=== PATIENT | female | born 1970 | race Caucasian/White ===

== ENCOUNTER → 2020-04-06 | Outpatient (CLI) | payer BC, SELFPAY ==
[2014-01-05 08:32] VITALS: BMI 29.0
[2020-04-06 17:06] LABS: Absolute Lymphocyte Count 3.19 X10^3/uL (0.83-4.51); Absolute Neutrophil Count 5.3 X10^3/uL (2.0-7.7); Basophil# 0.04 X10^3/uL; Basophil% 0.4 % (0-1); Eosinophil# 0.02 X10^3/uL; Eosinophils% 0.2 % (0-5); Hemoglobin 15.5 g/dL (12.0-15.0); Lymphocyte # 3.19 X10^3/ul (4.0); Lymphocyte % 34.9 % (19-41); Mean Corp Hgb Conc 33.7 g/dL (32-36); Mean Corpuscular Hgb 29.6 pg (27.0-32.0); Mean Platelet Vol. 9.5 fl (6.2-12.0); Monocyte# 0.59 X10^3/uL; Monocyte% 6.5 % (0-10); NRBC Flagged by Analyzer 0 % (0-5); Neutrophil # 5.27 X10^3/uL (2.7-7.7); Neutrophil % 57.7 % (47-70); Platelet Count 339 K/mm3 (150-450); RBC Distribution Width CV 13.3 % (11.6-14.6); RBC Distribution Width SD 42.5 fl (35.1-43.9); Red Blood Count 5.23 M/mm3 (4.2-5.4); White Blood Count 9.1 K/mm3 (4.4-11.0)
[2020-04-06 17:11] LABS: Erythrocyte Sedimentation Rate 4 mm/hr (0-20)
[2020-04-06 17:22] LABS: CRP 6.71 mg/L (0.0-3.0)
== END | disposition home or self-care (01) ==
PROVIDERS: PCP Family Medicine; Referring Provider Physician Assistant; Visit Provider Physician Assistant
DX: Z09 Encounter for follow-up examination after completed treatment for conditions other than malignant neoplasm (principal)
CPT/HCPCS: 36415; 85025; 85652; 86140

== ENCOUNTER → 2021-05-20 15:48 | Outpatient (CLI) | payer BC, SELFPAY ==
--- NOTE | 2021-05-20 16:12 | CT_ITS ---
STUDY: CT RIGHTLOWER EXTREMITY WITHOUT CONTRAST REASON FOR EXAM: Female, 51 years old. RT KNEE OSTEOARTHRITIS [facility] protocol for knee replacement. RADIATION DOSAGE (If Supplied By Facility): CTDIvol = ( 18.81 ) mGy, DLP = ( 1191.36 ) mGycm TECHNIQUE: Thin section transaxial imaging of the ankle was obtained, with sagittal and coronal reconstructed images. Individualized dose optimization techniques were used for this CT. COMPARISON: None. Hip findings: Right hip prosthesis noted without demonstrated complications. Good bony contact and alignment of the prosthetic components visualized. No acute fractures or aggressive abnormality of the hip. Unremarkable soft tissues and visualized intrapelvic structures. Knee findings: 2 threaded screws are present across the anterior to posterior aspect of the tibial tuberosity and proximal one third tibial shaft without complications. No fractures are present. Mild to moderate narrowing is present at the periphery of the medial compartment. There is preservation of the articular joint space of the medial knee compartment. Normal lateral femoral condyle and lateral tibial plateau. There is preservation of the articular joint space of the lateral knee compartment. Normal proximal tibiofibular articulation. There is no joint effusion. The patellofemoral compartment is mildly narrowed in addition to cortical spurring seen at the periphery of the lateral patellar facet. The quadriceps tendon is grossly normal. The patellar tendon is grossly normal. Normal Hoffa''s fat pad. The soft tissues are unremarkable. Ankle findings: Normal visualized distal tibia and fibula. Normal tibiotalar articulation and talar dome. Normal talus, calcaneus, navicular and cuboid tarsal bones. Normal subtalar, talonavicular and calcaneocuboid articulations. The soft tissue structures are grossly normal. CT/Extremity Lower without Contra IMPRESSION: 1. Degenerative changes of the knee joint. 2. No fracture or suspicious bony abnormality is present. Electronically Signed: Sher Concepcion MD at 16:57 EDT , Service support ,
== END ==
PROVIDERS: PCP Family Medicine; Referring Provider Orthopaedic Surgery; Visit Provider Orthopaedic Surgery
DX: M17.31 Unilateral post-traumatic osteoarthritis, right knee (principal)
CPT/HCPCS: 73700

== ENCOUNTER 2021-06-20 05:56 | Day surgery (SDC) | payer BC, SELFPAY ==
[2021-05-20 17:21] LABS: Hematocrit 48.2 % (37-47); Hemoglobin 15.8 g/dL (12.0-15.0); Mean Corp Hgb Conc 32.8 g/dL (32-36); Mean Corpuscular Hgb 28.9 pg (27.0-32.0); Mean Corpuscular Volume 88.3 fL (81-99); Mean Platelet Vol. 9.3 fl (6.2-12.0); Platelet Count 354 K/mm3 (150-450); RBC Distribution Width CV 13.5 % (11.6-14.6); RBC Distribution Width SD 43.8 fl (35.1-43.9); Red Blood Count 5.46 M/mm3 (4.2-5.4); White Blood Count 11.8 K/mm3 (4.4-11.0)
[2021-05-20 17:40] LABS: Anion Gap 6 (5-15); BUN 13 mg/dL (7-18); BUN/Creat Ratio 16.8 RATIO (10-20); Calcium,Total 9.1 mg/dL (8.5-10.1); Chloride 103 mmol/L (98-107); Creatinine, Serum 0.77 mg/dL (0.55-1.02); EST Glomerular Filtration Rate 84 mL/min (>60); Est Glom Filt Rate - Afr Amer 102 mL/min (>60); Glucose 124 mg/dL (74-106); Potassium 3.5 mmol/L (3.5-5.1); Sodium Level 140 mmol/L (136-145)
[2021-05-20 18:03] LABS: Hemoglobin A1c 5.4 % (3.8-5.6)
[2021-05-23 08:54] LABS: Magnesium 2.3 mg/dL (1.6-2.6)
--- NOTE | 2021-05-27 10:11 | EKG12_ITS ---
Test Reason : PREOP Blood Pressure : / mmHG Vent. Rate : 073 BPM Atrial Rate : 073 BPM P-R Int : 158 ms QRS Dur : 082 ms QT Int : 368 ms P-R-T Axes : 054 037 054 degrees QTc Int : 405 ms Normal sinus rhythm Normal ECG Confirmed by NROMA TURPIN, KENNETH ([id number]), rewrite editor BETTY VOSS ([id number]) on 05/30/2021 1:13:52 PM Referred By: Mega Turner Confirmed By:KENNETH GREEN MD
[2021-06-20] VITALS (8 sets, daily range): BP systolic 100–119; BP diastolic 55–76; PULSE 67–76; RESP 16–18; TEMP 36.2–36.6; O2SAT 99–100; BMI 35.0
--- NOTE | 2021-06-20 | KNEE_PTH ---
PATIENT: BELINDA HORTA [place] [facility] [id number] AGE/SX: 51/F ROOM: RE06/20/[address]: Dr. Mega Turner DO : 1970 BED: DIS: 06/20/2021 SPEC #: [id number] RECD: 06/20/21 13:16 STATUS: IRLANDA REKaren #: [id number] RANJEET: 06/20/21 00:[address]: Mega Turner DEPT: SURGICAL PATHOLOGY RECD BY: Sage Abarca ENTERED: 06/20/21 13:17 SP TYPE: TOTAL KNEE OTHR DR: Dr. Lashell Patel MD Tissues: Knee, NOS Procedures: Decalcification bone/plaque Surgery Specimen Level IV HEADER OPERATION: ERAS, total knee replacement robotic arm assist PRE-OP DIAGNOSIS: Posttraumatic osteoarthritis right knee TISSUE SUBMITTED: Right knee bone MICROSCOPIC DIAGNOSIS Right knee bone, total knee replacement/resection: Pieces of bone with minimal degenerative osteoarthritic changes, clinically posttraumatic osteoarthritis. JENNY:ike 06/23/2021 MICROSCOPIC DESCRIPTION Slides are reviewed. GROSS DESCRIPTION Received is one container designated right knee bone. The specimen consists of multiple fragments of mirza-yellow bone measuring in aggregate 9 x 8.5 x 3 cm. No soft tissue is identified. A number of bony fragments contain articular surfaces consistent with tibial plateau and femoral condyle and displaying bone erosion. Floor Finisher sections are submitted in two cassettes after decalcification. / JENNY:ike 06/20/21 TC:5 CPT: 29771, 00002
[2021-06-20 06:31] LABS: Bedside Glucose 90 mg/dL (70-110)
[2021-06-20] MEDS: Acetaminophen 500 MG Tablet 1000 MG PO (06:54)
[2021-06-20] MEDS: Gabapentin 600 MG Tablet PO (06:54)
[2021-06-20] MEDS: Lactated Ringers 1,000 ML 100 ML IV (07:05)
[2021-06-20] MEDS: Cefazolin 2 GM in 0.9% Normal Saline 100 ML IV (08:11)
--- NOTE | 2021-06-20 10:00 | OP.PCM_ITS ---
Report of Operation Date of Procedure: 06/20/21 Pre-Operative Diagnosis: OA right knee and painful retained hardware right tibi al tubercle Post-Operative Diagnosis: same Surgery/Procedure Performed:: Removal of hardware and right TKR Description of Surgical Findings:: Report of Operation Date of Procedure: 06/20/21 Preoperative Diagnosis: [right ] knee primary osteoarthritis and painful retained hardware tibial tubercle Postoperative Diagnosis: [right ] knee primary osteoarthritis and painful retained hardware tibial tubercle Operation: Robotic Assisted Knee Total Arthroplasty, [right ] knee with removal of hardware Surgeon: Dr Mega Turner DO Bottle Caser: Al Rhoades PA-C Anesthesia: spinal Anesthesiologist: Willy Sheikh M.D. Findings: Stable knee with good patella tracking Specimen(s): Bony cuts Complications: No intraoperative complications Estimated Blood Loss: 20 cc IV Fluids: 1000 cc crystalloid Implants Used: 1. Christiano Triathlon size 3 press-fit CR femur 2. [place] Triathlon size 3 tibia 3. 32 mm patella 4. 9 mm CS polyethylene Brief History Operative Indications: [ (a51 y/o female) ] with history of [ right ] knee osteoarthrosis with radiographic findings with loss of joint space, osteophyte formation and subchondral sclerosis and painful retained screws from a previous tibial tubercle advancement.. Failed conservative measures as mentioned in the H&P. Discussion of total knee arthroplasty as well as risk and benefits were discussed with the patient including but not limited to blood loss, DVTs, PEs, neurovascular damage, general risk of anesthesia including loss of life, and stiffness or instability were also discussed with the patient. Patient demonstrated understanding and was able to sign informed consent. Procedure: On the date of procedure, patient's [ right ] lower extremity was marked in the preoperative area. The patient was then taken back to the operating room where that patient was placed on the table in the supine position. All bony prominences were identified and well-padded. Anesthesia assumed control of the C-spine and airway throughout the remainder of the procedure. A tourniquet was placed on the [right ] upper thigh and the leg was prepped in a sterile fashion. The surgeon then scrubbed at this time. Upon reentering the room, the [right ] lower extremity was draped in a standard orthopedic fashion. A timeout was then called and everyone agreed upon the side, the site, the procedure to be performed, patient's identity and antibiotics given. Esmarch bandage was used to exsanguinate the extremity and the tourniquet was placed up to 250 mmHg with the knee in flexion. A midline skin incision was made and a sharp dissection was taken down through skin, subcutaneous tissue and fat. The standard medial parapatellar incision was made and the patella was subluxed laterally. An appropriate deep MCL release was done and the fat pad was resected. The 2 tibial tubercle screw and their washers were exposed and removed with a 2.5 mm screw regional refrigerated cdl truck driver. Our attention was then directed to the patella. The patella was everted and a flat resection was made. The knee was then flexed up and 2 femoral pins were placed inside the incision and 2 tibial pins were placed outside the incision in the medial tibia bicortically. Once this was completed, the 2 checkpoints in the femur and tibia were placed. Knee was then flexed up and the bony landmarks were registered. Once the was completed, the knee taken through range of motion and manually stressed allowing us to plan for an appropriate tibial cut. The robotic arm was brought into the field sterilely and checkpoint and saw were registered. Based on the patient's deformity, the tibial cut was made in [ neutral ]. At this time, the tensioner was then placed in the joint and ligament tension was checked at 90 degrees and full extension. Based on the patient's ligamentous tension, appropriate adjustments were made to the operative plan and ligament releases were done. Once we were happy with our operative plan with balanced flexion and extension gaps, our attention was directed to the femur. The robot was brought into the field sterilely and registered. Posterior condylar cuts, anterior chamfer cuts and anterior cuts were appropriately made for a [ size 3 ] femur. When these were completed, the saws were switched out in the distal femoral and posterior chamfer cuts were made. Protecting the soft tissue throughout this time. A [size 3 ] base plate was selected. The knee was flexed to 90 degrees and soft tissues and posterior osteophytes were removed from the joint. 40 cc of the periarticular injection was injected into the posterior medial corner of the joint. The appropriate trials were then placed on the femur and tibia. A trial polyethylene was trialed to ensure proper balancing and stability of the knee. The appropriate tibial internal rotation was then marked with a bovie. Our attention was then directed to the patella. The lug holes were drilled and the patella trial was placed. Patellar tracking was checked and deemed appropriate. Once we were happy, lug holes were drilled for the femur and trial components were removed. The tibia was subluxed and pinned into place and the keel was punched and drilled appropriately. Final components were verified and opened. The wound was copiously irrigated with normal saline. The components were impacted into place with the tibia, femur and finally the patella. The trial poly component was placed and the knee was placed in full extension. The tracking, alignment and balance were verified and a [9 mm CS ] polyethylene component was placed. Once the final components were placed an Irrisept lavage was performed and the wound was copiously irrigated with normal saline solution and the periarticular injection was given. the wound was closed in a layer-vazquez fashion using #1 vicryl interrupted sutures for the arthrotomy, 2-0 interrupted vicryl suture for the subcuticular layer and tasha for final skin closure. A sterile compressive dressing was then placed. The patient was then awakened from anesthesia, trans ferred to the [facility] the [facility] and transferred to the PACU for recovery. My physician instructional support assistant was a vital part of this case. He was important in appropriate retraction during the case, and protection of soft tissues during bony cuts. His intimate knowledge of the case and my steps aided in safe and expedient completion of the procedure as well as appropriate position of the leg during the case. He was also vital in assisting with closure under my direct supervision. Due to the complexity of this case, robotic arm was used to assist in the surgery to improve accuracy and clinical outcomes. Post-op Plan: DVT ppx; ASA 81 mg BID, thigh high compression stockings Follow up: in office in 2 weeks for wound check PT: to start POD #0 at hospital, outpatient PT should be arranged. Preoperative antibiotic: Mega Turner DO Surgeon: Mega Turner instructional support technician: Al Rhoades Type of Anesthesia: Spinal Anesthesiologist: Willy Sheikh Estimated Blood Loss (mL): 20 cc Fluids Replaced: 1000 cc crystalloid Admit VTE Documentation VTE Present on Admission: No VTE Mechan Device Prophylaxis: SCD's and Thigh High SANCHO Hose VTE Pharm Prophylaxis ordered?: Yes
--- NOTE | 2021-06-20 10:30 | RAD_ITS ---
STUDY: X-RAY - RIGHT KNEE REASON FOR EXAM: Female, 51 years old. New total knee arthroplasty. TECHNIQUE: 2 view(s) of the knee. COMPARISON: None. FINDINGS: There is a 3 component total knee arthroplasty in anatomic position. There are expected post-operative findings. There are no complications. No other significant abnormality is identified. RAD/Knee 1 or 2 Views IMPRESSION: Total knee arthroplasty in anatomic alignment without complications. Electronically Signed: Al Holly MD at 10:54 EDT , Service support ,
[2021-06-20] MEDS: Clindamycin 900 MG/50 ML BAG 75 MG IV (12:33)
== END 2021-06-20 14:17 | disposition home or self-care (01) ==
LOC: SDC 05:56 → AC 05:57
PROVIDERS: Anesthesiology; PCP Family Medicine; Referring Provider Orthopaedic Surgery; Visit Provider Orthopaedic Surgery
PROC: 0SRC0JZ Replacement of Right Knee Joint with Synthetic Substitute, Open Approach (ICD-10-PCS; CPT 27447; principal; 2021-06-20 08:00)
DX: M17.11 Unilateral primary osteoarthritis, right knee (principal); T84.84XA Pain due to internal orthopedic prosthetic devices, implants and grafts, initial encounter; F17.200 Nicotine dependence, unspecified, uncomplicated; Z79.891 Long term (current) use of opiate analgesic
CPT/HCPCS: 01402; 20680; 27447; 64447; 76942; 36415; 73560; 80048; 82962; 83036; 83735; 85027; 87081; 88305; 88311; 93005; 97162; C1776; J7120

== ENCOUNTER 2021-06-27 16:59 | Emergency (ER) | payer BC, SELFPAY ==
[2021-06-27 17:00] VITALS: BP 140/91; PULSE 90; RESP 18; TEMP 36.6; O2SAT 95; BMI 35.0
--- NOTE | 2021-06-27 19:21 | US_ITS ---
STUDY: VENOUS DOPPLER ULTRASOUND - RIGHT LOWER EXTREMITY REASON FOR EXAM: Female, 51 years old. undefined -- RECENT RT KNEE REPLACEMENT PAIN AND SWELLING TO THE SITE TECHNIQUE: Ultrasound evaluation of the deep vein system to include draper-scale imaging and compression was performed. Draper-scale imaging and Doppler sonographic evaluation, including duplex spectral analysis and qualitative color flow sonography, was performed. COMPARISON: None. FINDINGS: Common Femoral Vein: Normal compression, spontaneity and augmentation. Normal color Doppler. Common Femoral Vein/Greater Saphenous Junction: Normal compression, spontaneity and augmentation. Normal color Doppler. Superficial Femoral Proximal: Normal compression, spontaneity and augmentation. Normal color Doppler. Superficial Femoral Middle: Normal compression, spontaneity and augmentation. Normal color Doppler. Superficial Femoral Distal: Normal compression, spontaneity and augmentation. Normal color Doppler. Popliteal Vein: Normal compression, spontaneity and augmentation. Normal color Doppler. Posterior Tibial Vein: Normal compression, spontaneity and augmentation. Normal color Doppler. Peroneal Vein: Normal compression, spontaneity and augmentation. Normal color Doppler. Right inguinal lymph nodes. There is no demonstrated deep venous thrombosis. US/Venous Duplex Imag/Limited/Uni IMPRESSION: There is no demonstrated deep venous thrombosis. Please see technologist report in PACS for further details for their impression/ worksheet/ details/ etc. Electronically Signed: Medhat Laws MD at 20:22 EST , Service support ,
--- NOTE | 2021-06-27 20:50 | ED.VIS.LOWEX ---
HPI History of Present Illness Chief Complaint: Lower Extremity Injury Informant: patient Onset/Context/Timing Onset: Today Context: Gradual Onset Timing: Continuous Quality of Pain: Aching Location: Right lower leg Worsened by: Ambulation Relieved by: Nothing Associated Symptoms Associated Symptoms: Negative for Parasthesia and Weakness Narrative Narrative: Patient presents with right lower extremity pain and swelling that became worse today. Patient states she had recent right total knee replacement. Patient states she was on her feet all day yesterday and was doing a lot of ambulating. Patient states that she noted some pain over the medial aspect of the right knee today. Patient noted some increased swelling today. Patient denies any fevers or chills. Patient denies any chest pain or shortness of breath. Patient denies any nausea or vomiting. Patient denies any trauma or injury. [facility] Medical History Arthritis Depression Smoker Wears contact lenses Home Medications Estradiol [Evamist] 2 spray TRANSDERMAL QHS 12/25/13 [History Last Taken Unknown] Imipramine Pamoate 100 mg PO QHS 12/25/13 [History Last Taken 06/19/21] aspirin 325 mg PO DAILY PRN PRN 05/23/21 [History Last Taken Unknown] tramadol 50 mg PO Q6H PRN 05/23/21 [History Last Taken Unknown] Allergy/AdvReac Type Severity Reaction Status Date / Time No Known Allergies Allergy Verified 06/27/21 17:02 Surgical History History of elbow surgery History of tonsillectomy and adenoidectomy History of total hysterectomy History of total right hip replacement Social History Smoking Status: Current some day smoker tobacco type: cigarettes ROS ROS ED Constitutional Constitutional ED: Denies chills or fever(s) Eyes Eyes: Denies blurry vision or change in vision ENT ENT ED: Denies rhinorrhea or sore throat Cardiovascular Cardiovascular: Denies chest pain or palpitations Respiratory/Chest Respiratory/Chest: Denies cough or dyspnea Gastrointestinal Gastrointestinal: Denies nausea or vomiting Genitourinary Genitourinary ED: Denies dysuria or hematuria Musculoskeletal Musculoskeletal: Denies back pain or neck pain Integumentary Denies abscess or rash Neurologic Neurologic: Denies headache(s) or weakness Allergic/Immunologic Allergic/Immunologic ED: Denies mouth swelling or urticaria EXAM Physical Exam Const Vital Signs: 06/27/21 17:00 Temperature 97.9 F Temperature Source Temporal Pulse Rate 90 Respiratory Rate 18 Blood Pressure 140/91 H Blood Pressure Mean 107 Pulse Ox 95 Oxygen Delivery Method Room Air Positive well nourished and well developed General Appearance ED: well developed Neck full ROM and supple Extremity Extremity Narrative: There is some mild tenderness over the medial aspect of the right knee. There is no bony crepitance or step-off. There is good range of motion. Sutures and surgical tasha are still in place. There is no sign of any infection of the wound. There is no discharge or drainage. There is no erythema or warmth. There is some ecchymosis in the right calf and right ankle. There is no tenderness. Pedal pulses are equal bilaterally. Sensation was intact to light touch in all digits. Neuro oriented x3, CN's II-XII intact bilaterally, moves all extremities and no sensory deficits noted Sensorium / Orientation: alert Motor Exam: strength 5/5 throughout Psych mental status grossly normal MDM MDM MDM Narrative Medical decision making narrative: Venous duplex of the right lower extremity was obtained. There is no DVT noted. Patient was instructed to keep the right leg elevated. Patient was instructed to follow-up with her primary care physician and orthopedic surgeon as scheduled. Patient understood and was agreeable with the plan. All questions were answered. Radiography Diagnostic Testing: Clinical Impression(s) from Imaging Studies Venous Duplex 06/27/21 19:21 IMPRESSION: There is no demonstrated deep venous thrombosis. Please see technologist report in PACS for further details for their impression/ worksheet/ details/ etc. Electronically Signed: Medhat Laws MD at 20:22 EST , Service support , Discharge Plan Triage Chief Complaint: Lower Extremity Injury ED Provider: Tom Wilkerson Dx/Rx/DC Orders Clinical Impression: Edema of right lower leg Instructions: ED Peripheral Edema, Unilateral Prescriptions: No Action Estradiol [Evamist] 8.1 ML [place] 2 spray transdermal QHS RF: 0 Imipramine Pamoate 100 mg PO QHS RF: 0 tramadol 50 mg Tablet 50 mg PO Q6H PRN (Reason: Pain) RF: 0 aspirin 325 MG tablet,delayed release (DR/EC) 325 mg PO DAILY PRN PRN (Reason: Pain) RF: 0 Primary Care Provider: Lashell Patel Referrals: Lashell Patel MD [Primary Care Provider] - 3-5 Days Mega Turner DO [STAFF PHYSICIAN] - 3-5 Days Disposition Disposition: Home, Self Care
[2021-06-27 21:08] VITALS: PULSE 91; RESP 16; O2SAT 96
== END 2021-06-27 21:09 | disposition home or self-care (01) ==
LOC: ED 21:00
PROVIDERS: Emergency Provider Emergency Medicine; PCP Family Medicine
DX: R60.0 Localized edema (principal); F17.210 Nicotine dependence, cigarettes, uncomplicated; Z96.651 Presence of right artificial knee joint
CPT/HCPCS: 93971; 99282

== ENCOUNTER 2024-10-20 13:56 | Inpatient (IN) | payer BC, SELFPAY ==
[2024-10-08 12:40] LABS: Absolute Lymphocyte Count 2.19 X10^3/uL (0.83-4.51); Absolute Neutrophil Count 4.1 X10^3/uL (2.0-7.7); Basophil# 0.04 X10^3/uL; Basophil% 0.6 % (0-1); Eosinophil# 0.13 X10^3/uL; Eosinophils% 1.9 % (0-5); Hematocrit 42.7 % (37-47); Hemoglobin 14.2 g/dL (12.0-15.0); Lymphocyte # 2.19 X10^3/ul (0.83-4.51); Mean Corp Hgb Conc 33.3 g/dL (32-36); Mean Corpuscular Hgb 29.1 pg (27.0-32.0); Mean Corpuscular Volume 87.5 fL (81-99); Monocyte# 0.37 X10^3/uL; Monocyte% 5.4 % (0-10); NRBC Flagged by Analyzer 0 % (0-5); Neutrophil # 4.09 X10^3/uL (2.7-7.7); Neutrophil % 59.8 % (47-70); Platelet Count 271 K/mm3 (150-450); RBC Distribution Width CV 11.8 % (11.6-14.6); Red Blood Count 4.88 M/mm3 (4.2-5.4); White Blood Count 6.8 K/mm3 (4.4-11.0)
[2024-10-08 13:10] LABS: Albumin, Serum 3.9 g/dL (3.2-5.0); Anion Gap 5 (5-15); BUN 14 mg/dL (7-18); BUN/Creat Ratio 25.6 RATIO (10-20); Calcium,Total 9.5 mg/dL (8.5-10.1); Chloride 108 mmol/L (98-107); Creatinine, Serum 0.55 mg/dL (0.55-1.02); EST Glomerular Filtration Rate 124 mL/min (>60); Est Glom Filt Rate - Afr Amer 150 mL/min (>60); Glucose 96 mg/dL (74-106); Potassium 4.1 mmol/L (3.5-5.1); Sodium Level 140 mmol/L (136-145)
[2024-10-08 13:15] LABS: Magnesium 2.1 mg/dL (1.6-2.6)
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
[2024-10-20] VITALS (10 sets, daily range): BP systolic 91–110; BP diastolic 51–75; PULSE 70–89; RESP 16–100; TEMP 36.2–37.4; O2SAT 98–100; BMI 30.5; BMI 30.6
--- NOTE | 2024-10-20 09:21 | PCM.PRE.AN2 ---
ASA Classification* ASA Classification ASA Classification: 2 Assessment & Plan Anesthesia* Anesthesia Assessment Anesthesia Assessment: Discussed sedation and/or anesthesia options, risks, benefits, and alternatives with patient/parents/legal guardian/POA. Questions invited. The patient/parents/legal guardian/POA seems to understand and agrees to proceed with anesthesia plan. Reviewed the physical assessment, medical history, allergy history and patient home medications list prior to surgery/procedure/anesthetic and documented any changes. Performed airway and anesthesia risk assessments. Anesthesia Type Anesthesia Type: Spinal and Block Anesthesia Focused Assessment* Airway Assessment Mouth opens: >3 cm Mallampati Score: II Focused Labs Anesthesia Preop lab: CBC WBC 6.8 K/mm3 (4.4-11.0) 10/08/24 12:10/08/24 RBC 4.88 M/mm3 (4.2-5.4) 10/08/24 12:10/08/24 Hgb 14.2 g/dL (12.0-15.0) 10/08/24 12:10/08/24 Hct 42.7 % (37-47) 10/08/24 12:10/08/24 Plt Count 271 K/mm3 (150-450) 10/08/24 12:10/08/24 CHEMISTRY Potassium 4.1 mmol/L (3.5-5.1) 10/08/24 12:10/08/24 Sodium 140 mmol/L (136-145) 10/08/24 12:10/08/24 Magnesium 2.1 mg/dL (1.6-2.6) 10/08/24 12:10/08/24 BUN 14 mg/dL (7-18) 10/08/24 12:10/08/24 Creatinine 0.55 mg/dL (0.55-1.02) 10/08/24 12:10/08/24 Glucose 96 mg/dL (74-106) 10/08/24 12:10/08/24 POC Glucose 90 mg/dL (70-110) 06/20/21 06:28 06/20/21 COAG Pre-Assessment Diagnosis/Proposed Procedure Planned Operative Procedure(s): TOTAL KNEE POLY EXCHANGE RIGHT Anesthesia History Anesthesia History - tent assembler: Anesthesia History - tent assembler Hx Hospitalization No 09/25/24 13:26 Any Problems With Anesthesia No 09/25/24 13:26 Cholinesterase deficiency No 09/25/24 13:26 You/Your Family Experience No 09/25/24 13:26 fever (hyperthermia) with Relationship Recent Exposure to Contagious No 06/20/21 06:47 Disease Does patient have nerve No 09/25/24 13:26 stimulator Patient instructed to have device shut off --Does patient have Pacemaker or ICD? When Was Last Pacemaker Check QUESTION #4 FULL TEXT: You/Your Family Experience fever (hyperthermia) with Anesthesia Last Oral Intake Last Oral intake: Last Oral Intake NPO since Meds taken in AM with sips of water? Meds patient instructed to take am of surgery PONV PONV - tent assembler: PONV - tent assembler Female Yes 09/25/24 13:26 HX of Motion Sickness No 09/25/24 13:26 HX of N/V After Surgery No 09/25/24 13:26 Non-Smoker Yes 09/25/24 13:26 Duration of Surgery greater Yes 09/25/24 13:26 than 60 minutes Number of Risk Factors 3 09/25/24 13:26 PONV Score Moderate Risk 09/25/24 13:26 Height & Weight Height & Weight: Anesthesia: Height & Weight Height 5 ft 6 in 06/27/21 17:00 Respiratory Assessment Respiratory Assessment - tent assembler: Respiratory Tract Infection Hx - tent assembler Hx Respiratory Tract Infection No 09/25/24 13:26 STOP Sleep Apnea STOP Sleep Apnea - tent assembler: STOP Sleep Apnea - tent assembler Hx Hypertension No 09/25/24 13:26 Hx Sleep Apnea No 09/25/24 13:26 CPAP No 01/05/14 12:42 BIPAP Do you snore loudly (louder No 09/25/24 13:26 than talking or can be heard Do you often feel tired/ No 09/25/24 13:26 fatigued/ sleepy during daytime? Has anyone observed you stop No 09/25/24 13:26 breathing during sleep? STOP Results Negative 09/25/24 13:26 QUESTION #5 FULL TEXT : Do you snore loudly (louder than talking or can be heard through closed doors)? Tobacco Use History Tobacco Use History - tent assembler: Tobacco Use History - tent assembler Tobacco Use Smoking Status Former smoker 09/25/24 13:26 Hx Tobacco Use No 09/25/24 13:26 Years Smoking Packs Smoked per Day Smoking Cessation Date was Yes - quit smoking within 15 09/25/24 13:26 within the last 15 years years Hx Smoking Cessation Date 08/20/22 09/25/24 13:26 Hx Smoking Cessation No 09/25/24 13:26 Counseling Hematologic Medial History Hematologic Hx - tent assembler: Hematologic Medical Hx - camera repairman Hx of Blood Transfusion No 09/25/24 13:26 Hx of Transfusion in last 3 No 09/25/24 13:26 Months Date of Last Transfusion (if within last 3 months) Ever experience any problems No 09/25/24 13:26 with transfusion(s)? Specify any problems Hx of Preganancy in last 3 No 09/25/24 13:26 Months Nurse Filling Out Transfusion DSCHRIBER 09/25/24 13:26 & Questions: Date: 09/25/24 09/25/24 13:26 Time: 13:28 09/25/24 13:26 Patient unable to answer at this time (ie. confused, unrespo /Reproduction History /Reproductive History - tent assembler: /Reproductive Hx- tent assembler Hx Now No 09/25/24 13:26 Gestational Age (in weeks): EDC: Hx Hx Para Hx Section SAB No 09/25/24 13:26 Active Medications Active Medications: Current Medications Generic Name Dose Route Start Last Admin Trade Name Freq PRN Reason Stop Dose Admin Acetaminophen 1,000 mg 10/20/24 11:15 Acetaminophen 500 Mg Tablet PO 10/20/24 11:16 X1 ONE Sodium Chloride 77.4 ml/ 0 ml 10/20/24 11:15 Ropivacaine 200 mg/ OPERA.SITE 10/20/24 11:16 Epinephrine HCl 0.6 mg/ X1 ONE Ketorolac Tromethamine 30 mg/ Morphine Sulfate 5 mg Dexamethasone Sodium Phosphate 10 mg 10/20/24 11:15 Dexamethasone 10 Mg/Ml Vial IV 10/20/24 11:16 X1 ONE Gabapentin 600 mg 10/20/24 11:15 Gabapentin 600 Mg Tablet PO 10/20/24 11:16 X1 ONE Lactated Ringer's 1,000 mls @ 999 mls/hr 10/20/24 11:15 IV 10/20/24 12:15 .Q1H1M FRANCIE Cefazolin Sodium 2 gm/ N/A 20 mls @ 400 mls/hr 10/20/24 11:15 IV 10/20/24 11:17 PREOP ONE Tranexamic Acid 1,000 mg/ 110 mls @ 660 mls/hr 10/20/24 11:15 Sodium Chloride IV 10/20/24 11:24 X1 ONE Tranexamic Acid 1,000 mg/ 110 mls @ 660 mls/hr 10/20/24 11:15 Sodium Chloride IV 10/20/24 11:24 X1 ONE Magnesium Sulfate 1 gm/ 102 mls @ 408 mls/hr 10/20/24 11:15 Dextrose IV 10/20/24 11:29 X1 ONE Insulin Human Lispro 1 - 6 unit 10/20/24 11:15 Insulin Lispro 100 Unit/Ml Insuln.Pen SC 10/20/24 23:59 Q4H PRN PRN BG>/= 180, SEE PROTOCOL Protocol PFSH Medical History Bladder disease Wears glasses Former smoker History of pain when walking Cardiology follow-up encounter Wears contact lenses Arthritis Home Medications ?Medication ?Instructions ?Recorded ?Last Taken ?Type Imipramine Pamoate 100 mg PO QHS OAB 12/25/13 06/19/21 History calcium 500 mg (as 2 tab PO DAILY SUPPLEMENT 09/25/24 Unknown History carbonate)-vitamin D3 3.125 mcg (125 unit) tablet cholecalciferol (vitamin D3) 50 100 mcg PO DAILY SUPPLEMENT 09/25/24 Unknown History mcg (2,000 unit) tablet (Vitamin D3) hydrocodone-acetaminophen 5-325mg 1 tab PO TID PAIN 09/25/24 Unknown History 5mg-325mg methocarbamol 500 mg tablet 250 mg PO TID PAIN 09/25/24 Unknown History multivitamin with minerals-folic 1 tab PO DAILY SUPPLEMENT 09/25/24 Unknown History acid 200 mcg chewable tablet (Adult Multivitamin Gummies) Allergy/AdvReac Type Severity Reaction Status Date / Time No Known Allergies Allergy Verified 09/25/24 13:20 Surgical History History of surgery History of gastric bypass Hx of total knee replacement History of tonsillectomy and adenoidectomy History of total hysterectomy History of elbow surgery History of total right hip replacement Social History Smoking Status: Former smoker Review of Systems (Anesthesia) ROS Narrative System reviewed and no additional complaints, except as documented.
[2024-10-20] MEDS: Magnesium 1 GM over 15 mins IV (10:09)
[2024-10-20] MEDS: Lactated Ringers 1,000 ML 999 ML IV (10:09)
[2024-10-20] MEDS: Acetaminophen 500 MG Tablet 1000 MG PO ×3 (10:10→20:35)
[2024-10-20] MEDS: Gabapentin 600 MG Tablet PO (10:10)
[2024-10-20 10:50] LABS: Bedside Glucose 63 mg/dL (74-106)
[2024-10-20] MEDS: Cefazolin 2 GM in Syringe 10 ML IV (12:38)
[2024-10-20] MEDS: TXA 1000mg in NS100 100ml (IVPB at Incision) 660 MG IV (12:46)
[2024-10-20] MEDS: dexAMETHasone 10 MG/ML Vial IV (12:47)
[2024-10-20] MEDS: JPS (Morphine 10mg/ml) OPERA.SITE (13:40)
[2024-10-20] MEDS: TXA 1000mg in NS100 100ml (IVPB at Closure) 660 MG IV (13:41)
--- NOTE | 2024-10-20 13:51 | OP.PCM_ITS ---
Operative Report (Standard) Operative Information Date of Procedure: 10/20/24 Pre-Operative Diagnosis: Pain and instability status post right total knee replacement with lateral facet pain Post-Operative Diagnosis: Pain and instability status post right total knee replacement with lateral facet pain Surgery/Procedure Performed: Right total knee knee 1 component revision, complete synovectomy and lateral patellar facetectomy radiologist chief of breast imaging: Yes Telegraph Office Manager: Valentina Morales Tasks completed by topographical field assistant: Other (See operative report body) Additional assistant press operator offset?: No Type of Anesthesia: Spinal RN Documented Start/Stop Times: Operation Date: 10/20/24 11:15 Case Time Into Pre-Op 10/20/24 09:10 Out of Pre-Op 10/20/24 12:30 Anesthesia Start 10/20/24 12:38 Into Room 10/20/24 12:38
--- NOTE | 2024-10-20 13:51 | PCM.OPRPT ---
Operative Report (Standard) Operative Information Date of Procedure: 10/20/24 Pre-Operative Diagnosis: Pain and instability status post right total knee replacement with lateral facet pain Post-Operative Diagnosis: Pain and instability status post right total knee replacement with lateral facet pain Surgery/Procedure Performed: Right total knee knee 1 component revision, complete synovectomy and lateral patellar facetectomy community health nurse supervisor: Yes Truck Loader Overhead Crane: Valentina Morales Tasks completed by roofer assistant: Other (See operative report body) Additional patient observation assistant?: No Type of Anesthesia: Spinal RN Documented Start/Stop Times: Operation Date: 10/20/24 11:15 Case Time Into Pre-Op 10/20/24 09:10 Out of Pre-Op 10/20/24 12:30 Anesthesia Start 10/20/24 12:38 Into Room 10/20/24 12:38 Procedure Start 10/20/24 13:08 Procedure End 10/20/24 14:47 Anesthesia End 10/20/24 14:51 Out of Room 10/20/24 14:51 Procedure Start Time: 13:08 Procedure Stop Time: 14:47 Select all DRAINS/GRAFTS/IMPLANTS that apply: Prosthetic device Prosthetic device details: Christiano X3 triathlon polyethylene size 3/11 mm CS Special Medications: Ancef Estimated Blood Loss: 25 mL Fluids Replaced: 1500 mm crystalloid Specimen collected: No Description of surgery: On the date of procedure patient's R lower extremity was marked in the preoperative area. The patient was then taken back to the operating room where the patient was placed on the table in the supine position. All bony prominences were identified a well-padded. Anesthesia assumed control of the C-spine and airway and remained controlled throughout the remainder of the procedure. A tourniquet was placed on the operative thigh and the leg was prepped in a sterile fashion. The surgeon then scrubbed at this time .Upon reentering the room left lower extremity was draped in a standard orthopedic fashion. A timeout was then called and everyone agreed upon the side, the site, the procedure to be performed, patient's identity and antibiotics given. A midline skin incision was made and sharp dissection was taken down through skin subcutaneous tissue and fat. Appropriate flaps were elevated medially and laterally. His arthrotomy was identified and the standard medial parapatellar incision was made and the patella was subluxed laterally. The standard deep MCL release was done. At this point a complete synovectomy commenced. Our attention was first turned towards the subpatellar pouch and all synovium was debrided. We then directed our attention towards medial lateral gutters were these tissues were completely debrided. Knee was then flexed up the polyethylene was removed. Once polyethylene was removed we did the remainder of the synovium in the medial and lateral gutters and along the lateral structures and MCL. We then debrided the posterior knee. Knee was flexed up and synovium was removed and the PCL. And also there was a membrane beneath the tibial baseplate that was removed. He had completed our synovectomy and were happy with the joint. The wound was irrigated out with 6 L of normal saline under low-pressure lavage. We then trialed and settled upon a 11 mm polyethylene. Triathlon size 3X3 11 mm polyethylene was then opened and put back into place after appropriate trialing. Tourniquet was let down and hemostasis was obtained as well as possible. Once the final components were placed the wound was copiously irrigated with normal saline solution. The wound was closed in a layer vazquez fashion using #1 vicryl interrupted sutures for the arthrotomy, 2-0 interrupted Vicryl for the subcuticular layer and tasha for final skin closure. A sterile compressive dressing was then placed. The patient was then awakened from anesthesia, transferred to the [place] and transferred to the PACU for recovery. Post op plan DVT prophylaxis: Aspirin 81 mg p.o. twice daily PT normal total knee postop protocol Antibiotics: Doxycycline 100 mg p.o. twice daily for 2 weeks due to revision nature of surgery My physician patient observation assistant was a vital part of this case, they was important because there was not another skilled set of hands available to their training and aptitude needed for safe and appropriate completion of this case. They were important in appropriate retraction during the case, and protection of soft tissues during bony cuts. In particular the experience and skill of this patient observation assistant made for safe retraction and exposure during implantation of medical implants without damage or fracture to vital soft tissues or structures. His intimate knowledge of the case and my steps aided in safe and expedient completion of the procedure as well as appropriate position of the leg during the case. He was also vital in assisting with closure and placement of the dressing under my direct supervision. Surgical Findings: Patient inferior stability when upsizing from 9 mm to 11 mm polyethylene. Implants were stably fixed Complications Complications: No Admit VTE Documentation VTE Present on Admission: No VTE Mechan Device Prophylaxis: SCD's and Thigh High SANCHO Hose VTE Pharm Prophylaxis ordered?: Yes
--- NOTE | 2024-10-20 15:05 | PCM.POST.ANE ---
Anesthesia: Postop Eval I Current Vital Signs Temperature: 97.1 F Pulse Rate: 83 Blood Pressure: 100/62 Respiratory Rate: 16 Pulse Ox: 100 Oxygen Delivery Method: Nasal Cannula Oxygen Flow Rate (L/min): 4 Assessment Airway patent: Yes Spontaneous unlabored respirations: Yes Mental status: Awake nausea: No Vomiting: No Anesthesia Complication: No Fluid Hydration Crystalloid volume administer (ml): 1,900 Total IV fluid infused: 1,900 Progress Note Anesthesia document: Postop Eval 1 completed: Yes
--- NOTE | 2024-10-20 15:15 | RAD_ITS ---
PROCEDURE: Right KNEE 1 OR 2 VIEWS REASON FOR EXAM: Postop right total knee arthroplasty. TECHNIQUE: AP and crosstable lateral view(s) of the right knee COMPARISON: Right knee radiograph from 06/20/2021. FINDINGS: There are postsurgical changes from knee arthroplasty with no acute fracture, dislocation, or loosening. Soft tissue air is present on a postsurgical basis. Skin tasha are identified anteriorly. RAD/Knee 1 or 2 Views IMPRESSION: Postsurgical changes from right knee arthroplasty. Reading Location: [facility]
--- NOTE | 2024-10-20 15:23 | POSTOPAN2_ITS ---
Anesthesia Postop Eval I Sum Postop Eval Completion status Anesthesia document: Postop Eval 1 completed: Yes Anesthesia Postop Eval I Summary Anesthesia Postop Eval I Summary: Anesthesia Postop Eval I: Assessment Summary Airway patent Yes 10/20/24 15:07 [email or web address] Spontaneous unlabored Yes 10/20/24 15:07 [email or web address] [email or web address] respirations Mental status Awake 10/20/24 15:07 [email or web address] [email or web address] nausea No 10/20/24 15:07 [email or web address] [email or web address] Vomiting No 10/20/24 15:07 [email or web address] [email or web address] Anesthesia Postop Eval I: Fluid Summary Crystalloid volume administer 1,900 10/20/24 15:07 [email or web address] [email or web address] (ml) Colloids volume administered ( ml) Blood Product volume administered (ml) Total IV fluid infused 1,900 10/20/24 15:07 [email or web address] [email or web address] Anesthesia Postop Eval I: Summary Notes Anesthesia Complication No 10/20/24 15:07 [email or web address] Anesthesia Complication Comment: Post-operative progress note Anesthesia: Postop Eval II Evaluation Mental status: Awake Pain Level: 0 nausea: No Vomiting: No
--- NOTE | 2024-10-20 15:23 | PCM.POSTANE2 ---
Anesthesia Postop Eval I Sum Postop Eval Completion status Anesthesia document: Postop Eval 1 completed: Yes Anesthesia Postop Eval I Summary Anesthesia Postop Eval I Summary: Anesthesia Postop Eval I: Assessment Summary Airway patent Yes 10/20/24 15:07 INDUSTRIAL [email or web address] [email or web address] Spontaneous unlabored Yes 10/20/24 15:07 INDUSTRIAL HYGIENE [email or web address] respirations Mental status Awake 10/20/24 15:07 INDUSTRIAL HYGIENE [email or web address] nausea No 10/20/24 15:07 INDUSTRIAL HYGIENE [email or web address] Vomiting No 10/20/24 15:07 INDUSTRIAL HYGIENE [email or web address] Anesthesia Postop Eval I: Fluid Summary Crystalloid volume administer 1,900 10/20/24 15:07 INDUSTRIAL HYGIENE [email or web address] (ml) Colloids volume administered ( ml) Blood Product volume administered (ml) Total IV fluid infused 1,900 10/20/24 15:07 INDUSTRIAL HYGIENE [email or web address] Anesthesia Postop Eval I: Summary Notes Anesthesia Complication No 10/20/24 15:07 INDUSTRIAL HYGIENE [email or web address] Anesthesia Complication Comment: Post-operative progress note Anesthesia: Postop Eval II Evaluation Mental status: Awake Pain Level: 0 nausea: No Vomiting: No
--- NOTE | 2024-10-20 17:51 | PCM.CONS.GEN ---
Assessment & Plan Assessment/Plan (1) Status post revision of total replacement of right knee: PLAN: Plan Patient is a 54-year-old female who presented [facility] on 10/20/2024 for planned revision of right total knee replacement. Medicine consulted postoperatively for medical management. 1. Prior right total knee replacement with subsequent pain and instability with lateral facet pain ? Orthopedics primary. Initial right knee replacement done back in 2020. S/p right knee revision procedure with Dr. Katz on 10/20. Tolerated procedure well, no intraoperative complications. Pain control, DVT prophylaxis and further management per orthopedics. PT/OT/case management following. Chronic medical conditions: ? Class I obesity: BMI 30 on admit. Complicates hospital course, care and prognosis. ? Overactive bladder: Home imipramine 100 mg at night not on formulary here, okay to hold while inpatient. DVT prophylaxis: Per orthopedics Total clinical time spent by myself addressing the patient's medical issues, reviewing all the data, and collaborating with patient's care team: 35 minutes. HPI Consult Data Date of Consult: 10/20/24 HPI Narrative Reason for Consultation: Postoperative medical management HPI Narrative: BELINDA HORTA, is a 54 F who presented to [facility] on 10/20/2024 for planned orthopedic procedure. Medicine consulted postoperatively for medical management. Patient had revision of right total knee replacement done with Dr. Katz today. Tolerated procedure well, no intraoperative complications. Saw patient at bedside this afternoon, at bedside. Patient was sitting up comfortably in bed, conversing normally, in no acute distress. She denied any knee pain at this time. Denied any other concerns currently. [facility] Medical History Bladder disease Wears glasses Former smoker History of pain when walking Cardiology follow-up encounter Wears contact lenses Arthritis Home Medications ?Medication ?Instructions ?Recorded ?Last Taken ?Type Imipramine Pamoate 100 mg PO QHS OAB 12/25/13 10/19/24 20:00 History calcium 500 mg (as 2 tab PO DAILY SUPPLEMENT 09/25/24 10/19/24 08:59 History carbonate)-vitamin D3 3.125 mcg (125 unit) tablet cholecalciferol (vitamin D3) 50 100 mcg PO DAILY SUPPLEMENT 09/25/24 10/19/24 09:59 History mcg (2,000 unit) tablet (Vitamin D3) hydrocodone-acetaminophen 5-325mg 1 tab PO TID PAIN 09/25/24 10/19/24 History 5mg-325mg methocarbamol 500 mg tablet 250 mg PO TID PAIN 09/25/24 10/19/24 20:00 History multivitamin with minerals-folic 1 tab PO DAILY SUPPLEMENT 09/25/24 10/20/24 09:00 History acid 200 mcg chewable tablet (Adult Multivitamin Gummies) Allergy/AdvReac Type Severity Reaction Status Date / Time No Known Allergies Allergy Verified 10/20/24 09:42 Surgical History History of surgery History of gastric bypass Hx of total knee replacement History of tonsillectomy and adenoidectomy History of total hysterectomy History of elbow surgery History of total right hip replacement Social History Smoking Status: Former smoker ROS Constitutional Constitutional: Denies chills, fatigue, fever(s) or weakness Cardiovascular Cardiovascular: Denies chest pain Respiratory/Chest Respiratory/Chest: Denies shortness of breath at rest Gastrointestinal Gastrointestinal: Denies abdominal pain Musculoskeletal Musculoskeletal: Denies joint pain or joint swelling Physical Exam Const alert, oriented x3 and no apparent distress Constitutional Narrative: Pleasant middle-age female, class I obesity, sitting up comfortably in bed, conversing normally, in no acute distress. General Appearance: cooperative and comfortable HEENT normocephalic, head/scalp atraumatic, hearing grossly normal bilaterally, nasal mucous membranes and turbinates normal and moist oral mucous membranes Eyes PERRL, EOMs intact bilaterally and conjunctivae normal Neck full ROM Chest inspection of chest normal Resp normal respiratory effort, normal air movement, no use of accessory muscles and clear to auscultation bilaterally Cardio regular rate, regular rhythm, no murmurs and peripheral pulses 2+ throughout GI normal to inspection, nondistended, normoactive bowel sounds, soft to palpation, non-tender and non-distended Back/Spine normal ROM Extremity Extremity Narrative: Right knee with dressing and ice pack in place. Skin no rashes or lesions noted Neuro moves all extremities and no focal motor deficits Speech: speech normal Motor Exam: strength 5/5 throughout Psych mental status grossly normal Lab / Micro Data 10/08/24 12:27 10/08/24 12:27 Labs: Laboratory Results - last 24 hr 10/20/24 10:21: POC Glucose 63 L Imaging Radiology Impression Knee X-Ray 10/20/24 15:15 IMPRESSION: Postsurgical changes from right knee arthroplasty. [facility] Charges/Coding Visit Charges Inpatient E&M: 85989 Subs Hosp L2
[2024-10-20] MEDS: Ensure Surgery 237 ML LIQUID PO (18:08)
[2024-10-20] MEDS: oxyCODONE 5 MG Tablet PO ×2 (18:10→21:17)
[2024-10-20] MEDS: Senna/Docusate Sodium 1 Tablet 2 TABLET PO (20:35)
[2024-10-20] MEDS: Cefazolin 1 GM/50 ML BAG IV (20:35)
[2024-10-20] MEDS: Aspirin 81 MG TAB.CHEW PO (20:35)
[2024-10-21 00:19] VITALS: BP 108/84; PULSE 75; RESP 16; TEMP 36.6; O2SAT 93
[2024-10-21] MEDS: oxyCODONE 5 MG Tablet PO ×3 (01:01→12:08)
[2024-10-21 04:00] VITALS: BP 103/58; PULSE 77; RESP 16; TEMP 37; O2SAT 97
[2024-10-21 04:52] LABS: Hematocrit 38.8 % (37-47); Mean Corp Hgb Conc 33.5 g/dL (32-36); Mean Corpuscular Hgb 29.5 pg (27.0-32.0); Mean Corpuscular Volume 88.2 fL (81-99); Mean Platelet Vol. 9.3 fl (6.2-12.0); Platelet Count 299 K/mm3 (150-450); RBC Distribution Width CV 11.8 % (11.6-14.6); RBC Distribution Width SD 37.8 fl (35.1-43.9)
[2024-10-21] MEDS: Cefazolin 1 GM/50 ML BAG IV (04:54)
[2024-10-21 05:41] LABS: Anion Gap 13 (5-15); BUN 17 mg/dL (4-19); BUN/Creat Ratio 27.6 RATIO (10-20); Carbon Dioxide 21.1 mmol/L (22.0-29.0); Chloride 108 mmol/L (96-108); Creatinine, Serum 0.62 mg/dL (0.70-1.20); EST Glomerular Filtration Rate 107 (>60); Estimated Creatinine Clearance 102.85 ml/min (50-250); Glucose 140 mg/dL (70-99); Potassium 4.2 mmol/L (3.3-5.1); Sodium Level 142 mmol/L (133-145)
[2024-10-21] MEDS: Acetaminophen 500 MG Tablet 1000 MG PO ×2 (06:16→14:22)
[2024-10-21 08:13] VITALS: O2SAT 98
--- NOTE | 2024-10-21 09:02 | PCM.PN.ORT ---
Subjective Subjective Patient is lying comfortably in bed this morning. Patient has not yet been up and working with physical therapy. Patient states that she has been up to the bathroom but does have some concerns due to feeling stiff. Patient states she has had a bowel movement. Patient states that her pain is controlled. Patient denies shortness of breath, chest pain, calf pain. Patient denies nausea, vomiting, dizziness, lightheaded. Patient denies fever, chills, signs of infection. Patient expresses concern and anxiousness due to going home today due to her not being home because of a meeting as well as not yet working with physical therapy. Objective Data Objective Data Vital Signs: Vital Signs Temp Pulse Resp BP Pulse Ox O2 Del Method O2 Flow Rate 98.6 F 77 16 103/58 L 97 Room Air 4 10/21/24 04:00 10/21/24 04:00 10/21/24 04:00 10/21/24 04:00 10/21/24 04:00 10/21/24 04:00 10/20/24 15:46 Oxygen Flow Rate (L/min) 4 Oxygen Delivery Method Room Air Weight: 78.3 kg Body Mass Index (BMI) 30.6 Intake & Output: Intake and Output for Last 24 Hours 10/19/24 10/20/24 10/21/24 23:59 23:59 23:59 Intake Total 2392 / 2392 50 / 50 Balance 2392 / 2392 50 / 50 Lab / Micro Data 10/21/24 03:45 10/21/24 03:45 Labs: Laboratory Results - last 24 hr 10/20/24 10:21: POC Glucose 63 L 10/21/24 03:45: WBC 14.0 H, RBC 4.40, Hgb 13.0, Hct 38.8, MCV 88.2, MCH 29.5, MCHC 33.5, RDW Std Deviation 37.8, RDW Coeff of Ji 11.8, Plt Count 299, MPV 9.3, Sodium 142, Potassium 4.2, Chloride Direct 108, Carbon Dioxide 21.1 L, Anion Gap 13, BUN 17, Creatinine 0.62 L, Estim Creat Clear Calc 102.85, Est GFR (MDRD) Non-Af 107, BUN/Creatinine Ratio 27.6 H, Glucose 140 H, Calcium 9.0 Micro: Microbiology 10/08/24 12:27 Swab (Method) Nasal Screen MRSA/MSSA - Final Radiography Diagnostic Testing: Radiology Impression Knee X-Ray 10/20/24 15:15 IMPRESSION: Postsurgical changes from right knee arthroplasty. Reading Location: [facility] Physical Exam Narrative 1. SANCHO hose in place bilaterally. 2. SCDs in place bilaterally. 3. Dressing is clean dry and intact. 4. Dorsiflexion and plantarflexion are performed actively without pain or restriction. 5. Sensation intact to light touch. 6. Neurovascularly intact. 7. Negative Homans bilaterally. Const alert, oriented x3 and no apparent distress Assessment & Plan Assessment/Plan (1) Status post revision of total replacement of right knee: PLAN: Status post right total knee 1 component revision, complete synovectomy, lateral patellar facetectomy day 1. 1. DVT prophylaxis: Patient will be taking aspirin 81 mg 2 times per day for 4 weeks postoperatively. Patient will also be wearing SANCHO hose for 2 weeks postoperatively. Patient was educated she is able to remove SANCHO hose at night. Patient was encouraged to increase movement while at home to prevent DVT. 2. Pain medications: Pain control following surgery was discussed with pain management who requested that orthopedics manage postoperative pain for the first 6 weeks. Patient was instructed to take Tylenol 1000 mg every 8 hours taking no more than 3000 mg in 24 hours. We will avoid NSAIDs in this patient due to history of gastric sleeve. Patient will be on oxycodone as needed for breakthrough pain. OARRS report was reviewed today. Risk of abuse potential for narcotic pain medication was discussed and reviewed. Patient was advised not to drive a motor vehicle or operate heavy equipment while taking narcotic pain medication. They were instructed to use the minimal amount of narcotic pain medication as required for the pain. Patient voiced understanding. 3. Constipation: Patient states that she did have a bowel movement last night. 4. Physical therapy: Patient has not yet worked with physical therapy. Patient states that she has been up walking to the bathroom and that has gone well. Patient states that she may be starting to feel a bit stiff. Patient will be weightbearing as tolerated with walker. 5. H&H: 13.0/38.8. Patient is asymptomatic at this time. Hemoglobin has remained over 10 so anemia protocol does not need to be started. 7. Incentive spirometry: Patient was encouraged to use incentive spirometer every hour that they are awake for the first week to exercise long and decrease risk postoperative infection. 8. Dressing: Patient was educated that she is able to get the dressing wet on postoperative day 1 and can remove the dressing on postoperative day 5. Patient is able to leave incision open to air as long as clean dry and intact. 9. Patient is to follow-up per postoperative instructions. 10. Patient will be on doxycycline 2 weeks postoperatively due to nature of revision surgery. Patient was educated on the risk of sunburn while taking doxycycline and was encouraged to wear sunscreen if going to be outside in the sun. Patient was educated on taking a probiotic while taking antibiotics. 11. Patient will be on famotidine postoperatively for 30 days. 12. Medicine is on board and appreciate any recommendations from medicine at this time. 13. Reactive leukocytosis: White blood cell count is 14 today. Patients vital signs are afebrile and patient is not symptomatic. Patient did receive Decadron intraoperatively. 14. Disposition: Patient does still plan to go home. Patient states that at this time she does not feel comfortable going home today as her has a meeting and will not be home tonight. Patient does have safety concerns with going home when no one is there and caring for herself and her 2 dogs. Patient has not yet worked with physical therapy and would like to see how she does with physical therapy. Will plan to keep patient for another day as she is worried about working with physical therapy and has safety concerns with being home alone tonight.
[2024-10-21] MEDS: Senna/Docusate Sodium 1 Tablet 2 TABLET PO (09:51)
[2024-10-21] MEDS: Aspirin 81 MG TAB.CHEW PO (09:51)
[2024-10-21] MEDS: Famotidine 20 MG Tablet PO (09:51)
[2024-10-21 10:00] VITALS: BP 112/63; PULSE 78; RESP 16; TEMP 35.9; O2SAT 99
[2024-10-21 11:04] VITALS: O2SAT 99
--- NOTE | 2024-10-21 11:18 | CASEMGMT ---
Addendum entered by Jackie Becker 10/21/24 12:00: Pt was able to obtain a therapy appt this Sunday. The appt was changed. Original Note: LYNNE URIARTE Assessment: Face to Face with pt for initial transition planning/care coordination assessment. LYNNE URIARTE introduced self and role at [facility], pt voices understanding and consents to assessment. Pt is A&O x4 and answers all questions appropriately at this time. Pt sitting up in chair in no distress. Care providers, pharmacy, and demographics verified/updated. Admitting Dx: total knee poly exchange Strata Score: 1 PCP:Lashell Patel Specialists:mariah Katz Pharmacy: [facility] Retail Insurance: [place] Prescription Benefit: yes LNOK: Leroy Patten, sig other Living Arrangements: Pt lives with dtr currently. Pt plans to move in with her ex in a month and plans to stay at his home post op. He lives in a single story home with 3 steps to enter with a rail. Pt reports prior to surgery she was I in all ADL/IADLs. Transportation: Pt drives self and denies concerns with transportation. Pt dtr or sig other (ex ) can transport also. DME:raised toilet seat, walk in shower, crutches, FWW HHC/SNF: Pt denies hx of Pt states no concerns with going home at time of dc. Pt has outpt therapy set up at [facility] on 10/27. Pt to call to see if she can get this appt moved up. She will notify LYNNE URIARTE once she speaks to them. Pt states no further concerns/needs. CM to follow. Advised pt to ask CM if any further questions/concerns/needs arise, voices understanding. Pt Goal: Home with outpt therapy Plan: Home with outpt therapy Jasvir BATISTA CM Originally pt thought she did not have someone to stay with her tonight and she needed to stay at the hospital. Now pt is saying her sig other can be with her and she would like to dc. Updated NICOLE Montgomery.
--- NOTE | 2024-10-21 11:43 | PCM.DC ---
Discharge Instructions Diet Discharge Diet: No restrictions DC O2, CPAP, BIPAP needs Home O2 Discharge instructions: No Dressing / Incision Discharge Activity: May Not Drive (For 6 weeks postoperatively.) Weight Bearing Status: Weight bearing as tolerated (With walker.) Keep extremity elevated above heart level: Right Leg Dressing / Incision Call your doctor if your incision/area has: Continuous Slow Oozing, Increased Pain/ Swelling, Increased Redness, Foul Smelling Discharge and Swelling at the incision site Call your doctor if you observe: Fever of 101 or Higher, Coldness, Increased Pain, Change in Color, Inability to urinate, Inability to have a bowel movement, Shortness of breath, Dizziness, Fainting spells, Chest pain, Increased palpitations (irregular heartbeat), Calf discomfort and Uncontrolled pain Remove Dressing in: 4 days (Patient is able to remove dressing on postop day 5. If incision looks dry and intact patient is able to leave open to air.) Cleanse incision/area with: Soap & Water (Gentle soap and water in the shower.) Additional Dressing/Incision Instructions:: Follow [facility] Post-op Instructions. Dressing can be removed on postop day 5. Patient is able to shower on postop day 1. Do not use any ointments, Neosporin, salves, alcohol pads over the incision for 6 weeks postoperatively. Do not submerge underwater for 6 weeks postoperatively. Continue with SANCHO hose/elastic stockings for 2 weeks postoperatively. May remove at nighttime but needs to be placed back on the leg during the day. Do NOT use alcohol with narcotic pain medication. Do NOT make important decisions while taking narcotic medication. If you have problems with taking your medication (rash, itching, nausea, etc.) call the office at once. Follow Up Care Test Results: Test results from this visit will be discussed in further detail at your follow-up appointment, if applicable. Discharge Plan Admission Admit Date/Time: 10/20/24 13:56 Attending Provider: Trev Katz Primary Care Provider: Lashell Patel Consulting Providers: Micah Pimentel Discharge Orders/Prescriptions Prescriptions: New acetaminophen 500 mg Tablet 1,000 mg PO Q8 Qty: 0 0RF famotidine 20 mg Tablet 20 mg PO DAILY 30 Days Qty: 30 0RF doxycycline monohydrate 100 mg Capsule 100 mg PO BID 14 Days Qty: 28 0RF oxycodone 5 mg Tablet 5 - 10 mg PO Q4H PRN PRN (Reason: as needed for pain.) 7 Days Qty: 42 0RF aspirin 81 mg capsule 81 mg PO BID 30 Days Qty: 60 0RF Continued Imipramine Pamoate 100 mg PO QHS Patient Comments: overactive bladder methocarbamol 500 mg tablet 250 mg PO TID cholecalciferol (vitamin D3) [Vitamin D3] 50 mcg (2,000 unit) tablet 100 mcg PO DAILY multivit with min-folic acid [Adult Multivitamin Gummies] 200 mcg tablet,chewable 1 tab PO DAILY calcium carbonate-vitamin D3 500 mg-3.125 mcg (125 unit) tablet 2 tab PO DAILY Held hydrocodone-acetaminophen 5-325 mg tablet 1 tab PO TID Hold Instructions: Hold while taking Oxycodone while orthopedic is managing care. Referrals / Follow Up: Lashell Patel MD [Primary Care Provider] - Disposition Disposition (needs filled in before D/C Order can be placed): Home, Self Care
--- NOTE | 2024-10-21 11:59 | PCM.PN.HOSP ---
Subjective Subjective Doing well, and feels great. Would like to go home. Leukocytosis is reactive Objective Data Objective Data Vital Signs: Vital Signs Temp Pulse Resp BP Pulse Ox O2 Del Method O2 Flow Rate 96.6 F L 78 16 112/63 99 Room Air 4 10/21/24 10:00 10/21/24 10:00 10/21/24 10:00 10/21/24 10:00 10/21/24 10:00 10/21/24 10:00 10/20/24 15:46 Oxygen Flow Rate (L/min) 4 Oxygen Delivery Method Room Air Weight: 172 lb 9.951 oz Body Mass Index (BMI) 30.6 Intake & Output: Intake and Output for Last 24 Hours 10/20/24 10/21/24 10/22/24 03:59 03:59 03:59 Intake Total 2392 / 2392 50 / 50 Balance 2392 / 2392 50 / 50 Lab / Micro Data 10/21/24 03:45 10/21/24 03:45 Labs: Laboratory Results - last 24 hr 10/21/24 03:45: WBC 14.0 H, RBC 4.40, Hgb 13.0, Hct 38.8, MCV 88.2, MCH 29.5, MCHC 33.5, RDW Std Deviation 37.8, RDW Coeff of Ji 11.8, Plt Count 299, MPV 9.3, Sodium 142, Potassium 4.2, Chloride Direct 108, Carbon Dioxide 21.1 L, Anion Gap 13, BUN 17, Creatinine 0.62 L, Estim Creat Clear Calc 102.85, Est GFR (MDRD) Non-Af 107, BUN/Creatinine Ratio 27.6 H, Glucose 140 H, Calcium 9.0 Micro: Microbiology 10/08/24 12:27 Swab (Method) Nasal Screen MRSA/MSSA - Final Radiography Diagnostic Testing: Radiology Impression Knee X-Ray 10/20/24 15:15 IMPRESSION: Postsurgical changes from right knee arthroplasty. Reading Location: [facility] Physical Exam Narrative General: Alert, Oriented x3, Cooperative, No apparent distress HEENT: Atraumatic, PERRLA, EOMI, Normocephalic Oral: Moist Mucosa Neck: Supple, No JVD Lungs: Clear to auscultation, Normal air movement, No rhonchi, No wheeze, No rales Cardiovascular: Regular rate, Regular Rhythm, Normal S1, Normal S2, No murmurs Abdomen: Soft, Non Tender, Non-Distended, No Hepato-splenomegaly Extremities: No edema, Capillary Refill Less than 3 Seconds Skin: Dressing CDI Musculoskeletal: Tenderness to palpation of right knee though she says it feels better than her last time she had surgery on that knee Neurological: No focal neurological deficits, Motor Exam 5/5 strength throughout, Sensory exam intact to light touch and pain Psych/Mental Status: Normal Affect, Appropriate Assessment & Plan Assessment/Plan (1) Status post revision of total replacement of right knee: PLAN: Plan Patient is a 54-year-old female who presented [facility] on 10/20/2024 for planned revision of right total knee replacement. Medicine consulted postoperatively for medical management. 1. Prior right total knee replacement with subsequent pain and instability with lateral facet pain ? Orthopedics primary. Initial right knee replacement done back in 2020. S/p right knee revision procedure with Dr. Katz on 10/20. Tolerated procedure well, no intraoperative complications. Pain control, DVT prophylaxis and further management per orthopedics. PT/OT/case management following. 10/21/2024: Medically stable for discharge, would like narcotics sent to our pharmacy here in the hospital as her is not can get off of work until later and that her pharmacy is closed at that time. She does have a leukocytosis which is reactive to surgery Chronic medical conditions: ? Class I obesity: BMI 30 on admit. Complicates hospital course, care and prognosis. ? Overactive bladder: Home imipramine 100 mg at night not on formulary here, okay to hold while inpatient. DVT prophylaxis: Per orthopedics Will sign off please call with questions Charges/Coding Visit Charges Inpatient E&M: 44430 Subs Hosp L2
[2024-10-21] MEDS: Doxycycline 100 MG CAPSULE PO (12:09)
--- NOTE | 2024-10-21 14:37 | CHAPLAIN ---
Type of Pastoral Visit _x__ Initial Visit ___ Follow-up Visit ___ On-call Visit ___ General Patient Visit ___ Spiritual Assessment ___ Family Conference ___ Bereavement ___ Rapid Response ___ Code Blue ___ Other (describe below) Pastoral Care Referral From _x__ Patient ___ Family ___ Nurse ___ Physician ___ Dragsaw Operator ___ Associate Quality Engineer ___ Other (describe below) Sacrament/Intervention _x__ Active listening ___ Anointing ___ Yarsanism ___ Bereavement ___ Communion _x__ Kathy exploration ___ _x__ Life review _x__ Prayer ___ Reconciliation ___ Sacrament of Sick _x__ Supportive presence ___ Wedding ___ Other (describe below) Pastoral Comments patient is welcoming and talkative about her life; while she is expressive of her surgery and health issues the patient goes on into many other relational and spiritual concerns and plans; pt seeks some information, support, and prayers for the changes coming into her life; pt is tearful briefly as she relates how she is relieved to be making a different path and one that is more centered in kathy and a kathy community; pt expresses gratitude for the support
[2024-10-21 16:00] VITALS: BP 107/72; PULSE 92; RESP 16; TEMP 36.6; O2SAT 96
--- NOTE | 2024-10-21 16:30 | PHA.DC.MC.R ---
Pharmacy [facility] has performed discharge medication reconciliation and counseling for this patient. While counseling patient, she reported she had a gastric bypass surgery and was told she should never take NSAIDs, has been prescribed aspirin BID for DVT prophylaxis post-op. Spoke to Valentina Morales, who then spoke to Dr. Katz. They are okay with patient taking aspirin because it is a small dose and also has famotidine on board. I then when back to the patient and told her to go ahead with the aspirin, she verbalized understanding. 1. ACETAMINOPHEN 1000MG PO Q8 2. ASPIRIN 81MG PO BID X 30 DAYS 3. DOXYCYCLINE 100MG PO BID X 14 DAYS 4. FAMOTIDINE 20MG PO DAILY X 30 DAYS 5. OXYCODONE 5-10MG PO Q4H PRN PAIN (NORCO ON HOLD WHILE TAKING OXYCODONE) The patient's discharge medication list was reviewed for discrepancies and discrepancies were resolved. The patient was counseled on the following discharge medications and changes in medications for homegoing were reviewed. The Reason for Use, instructions for use, and potential side effects were reviewed for all new medications. The patient's questions regarding all of their medications were answered. The patient was able to verbally demonstrate an understanding of their discharge medications. Medications at Discharge Home Medications Imipramine Pamoate 100 mg PO QHS OAB 12/25/13 calcium 500 mg (as carbonate)-vitamin D3 3.125 mcg (125 unit) tablet 2 tab PO DAILY SUPPLEMENT 09/25/24 cholecalciferol (vitamin D3) 50 mcg (2,000 unit) tablet (Vitamin D3) 100 mcg PO DAILY SUPPLEMENT 09/25/24 hydrocodone-acetaminophen 5-325mg 5mg-325mg 1 tab PO TID PAIN 09/25/24 Held on 10/21/24. Instructions: Hold while taking Oxycodone while orthopedic is managing care. methocarbamol 500 mg tablet 250 mg PO TID PAIN 09/25/24 multivitamin with minerals-folic acid 200 mcg chewable tablet (Adult Multivitamin Gummies) 1 tab PO DAILY SUPPLEMENT 09/25/24 acetaminophen 500 mg tablet 1,000 mg (2 x 500 mg) PO Q8 #0 tabs 10/21/24 aspirin 81 mg capsule 81 mg PO BID 30 days #60 caps 10/21/24 doxycycline monohydrate 100 mg capsule 100 mg PO BID 14 days #28 caps 10/21/24 famotidine 20 mg tablet 20 mg PO DAILY 30 days #30 tabs 10/21/24 oxycodone 5 mg tablet 5 - 10 mg (1 - 2 x 5 mg) PO Q4H PRN PRN as needed for pain. 7 days #42 tabs 10/21/24
== END 2024-10-21 17:25 | disposition home or self-care (01) | DRG 468 ==
PROVIDERS: Anesthesiology; Admitting Provider Specialist; PCP Family Medicine; Referring Provider Specialist; Visit Provider Specialist
PROC: 0SWC0JC Revision of Synthetic Substitute in Right Knee Joint, Patellar Surface, Open Approach (ICD-10-PCS; CPT 27487; principal; 2024-10-20 10:55)
DX: T84.84XA Pain due to internal orthopedic prosthetic devices, implants and grafts, initial encounter (principal); T84.022A Instability of internal right knee prosthesis, initial encounter; F32.A Depression, unspecified; E66.811 Obesity, class 1; M25.561 Pain in right knee; K21.9 Gastro-esophageal reflux disease without esophagitis; Z68.30 Body mass index [BMI] 30.0-30.9, adult; Z87.891 Personal history of nicotine dependence; Z90.710 Acquired absence of both cervix and uterus; N32.81 Overactive bladder; Z96.651 Presence of right artificial knee joint; Z96.641 Presence of right artificial hip joint; Y79.2 Prosthetic and other implants, materials and accessory orthopedic devices associated with adverse incidents
CPT/HCPCS: 36415; 73560; 80048; 82040; 82962; 83735; 85025; 85027; 87081; 93005; 94668; 97162; 97166; 99252; C1776; G0463; J2405; J3475